=== PATIENT | female | born 1990 | race Caucasian/White ===

== ENCOUNTER → 2022-04-13 | Outpatient (CLI) | payer OTHER | LOC: M WUC 14:19 | PROVIDERS: ATTEND Physician Assistant | DX: K52.9 Noninfective gastroenteritis and colitis, unspecified (principal); Z78.9 Other specified health status; R50.9 Fever, unspecified ==

== ENCOUNTER → 2024-08-07 | Outpatient (REF) | payer OTHER ==
[2024-08-09 17:52] LABS: CANDIDA ALBICANS NAA NOT DETECTED (NOT DETECTED); CANDIDA GLABRATA NAA NOT DETECTED (NOT DETECTED); TRICH VAG BY NAA NOT DETECTED (NOT DETECTED)
[2024-08-09 18:07] LABS: BVAB 2 NEGATIVE (NEGATIVE)
[2024-08-09 18:27] LABS: CHLAMYDIA TRACHOMATIS NAA NOT DETECTED (NOT DETECTED); Neisseria gonorrhoeae NAA NOT DETECTED (NOT DETECTED)
== END ==
LOC: M SFHCLERA 11:24
PROVIDERS: ATTEND Internal Medicine
DX: N76.0 Acute vaginitis (principal)

== ENCOUNTER → 2024-08-08 | Outpatient (CLI) | payer OTHER, SELFPAY | LOC: M RAD 13:12 | PROVIDERS: ATTEND Internal Medicine | DX: N76.0 Acute vaginitis (principal) ==